=== PATIENT | male | born 1975 | race Two or more races ===

== ENCOUNTER 2025-02-02 08:41 | Emergency (ER) | payer MEDICAID ==
[2025-02-02] MEDS: Fluorescein 1 MG Ophth Strip EYELF ONE (09:03)
[2025-02-02 09:21] VITALS: BP 122/87; PULSE 84
== END 2025-02-02 09:15 | disposition home or self-care (01) ==
LOC: JD.ED 08:41
DX: S05.02XA Injury of conjunctiva and corneal abrasion without foreign body, left eye, initial encounter (principal); F17.210 Nicotine dependence, cigarettes, uncomplicated; Z88.0 Allergy status to penicillin; X58.XXXA Exposure to other specified factors, initial encounter; Y93.89 Activity, other specified
CPT/HCPCS: 99283; J3490